=== PATIENT | female | born 1940 | race Caucasian/White ===

== ENCOUNTER 2024-11-03 16:01 | Emergency (ER) | payer OTHER ==
[~2024-11-03] VITALS: Ht 167.6 cm; Wt 66.0 kg
--- NOTE | 2024-11-03 16:09 | ED.PDOC ---
History of Present Illness HPI Comments 84-year-old female brought by paramedics from home after twisting her ankle and falling to the ground hitting her head bending her right ankle. Unable to place weight after the fall on her right lower extremity. She could not even get into the car to drive to the nearest hospital. Paramedics stated her vitals signs her mentation was pristine no other deformity. History of hypertension diabetes. She does take aspirin. Denies any other symptoms. 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 Social History Smoker: Cigarettes Alcohol: Denies ETOH Use Drugs: Denies Drug Use Constitutional: denies: chills, diaphoresis, fatigue, fever, malaise, sweats, weakness, others EENTM: denies: blurred vision, double vision, ear bleeding, ear discharge, ear drainage, ear pain, ear ringing, eye pain, eye redness, hearing loss, mouth pain, mouth swelling, nasal discharge, nose bleeding, nose congestion, nose pain, photophobia, tearing, throat pain, throat swelling, voice changes, others Respiratory: denies: cough, hemoptysis, orthopnea, SOB at rest, shortness of breath, SOB with excertion, stridor, wheezing, others Cardiovascular: denies: chest pain, dizzy spells, diaphoresis, Dyspnea on exertion, edema, irregular heart beat, left arm pain, lightheadedness, palpitations, PND, syncope, others Gastrointestinal: denies: abdomen distended, abdominal pain, blood streaked bowels, constipated, diarrhea, dysphagia, difficulty swallowing, hematemesis, melena, nausea, poor appetite, poor fluid intake, rectal bleeding, rectal pain, vomiting, others Genitourinary: denies: abnormal vagina bleeding, burning, dyspareunia, dysuria, flank pain, frequency, hematuria, incontinence, pain, , vagina discharge, urgency, others Neurological: denies: dizziness, fainting, headache, left sided numbness, left sided weakness, numbness, paresthesia, pre-existing deficit, right sided numbness, right sided weakness, seizure, speech problems, tingling, tremors, weakness, others Musculoskeletal: reports: joint pain (Right ankle); denies: back pain, gout, joint swelling, muscle pain, muscle stiffness, neck pain, others Integumetry: denies: bruises, change in color, change in hair/nails, dryness, laceration, lesions, lumps, rash, wounds, others Allergic/Immunocompromised: denies: Difficulty Healing, Frequent Infections, Hives, Itching, others Hematologic/Lymphatic: denies: anemia, blood clots, easy bleeding, easy bruisin g, swollen glands, others Endocrine: denies: excessive hunger, excessive sweating, excessive thirst, excessive urination, flushing, intolerance to cold, intolerance to heat, unexplained weight gain, unexplained weight loss, others Psychiatric: denies: anxiety, bipolar disorder, depression, hopeless, panic disorder, schizophrenia, sleepless, suicidal, others Physical Exam General Appearance: Moderate Distress HEENT: Normal ENT Inspection, Pharynx Normal, TMs Normal Neck: Full Range of Motion, Non-Tender, Normal, Normal Inspection Respiratory: Chest Non-Tender, Lungs Clear, No Accessory Muscle Use, No Respiratory Distress, Normal Breath Sounds Cardiovascular: No Edema, No JVD, No Murmur, No Gallop, Normal Peripheral Pulses, Regular Rate/Rhythm Breast Exam: Deferred Gastrointestinal: No Organomegaly, Non Tender, No Pulsatile Mass, Normal Bowel Sounds, Soft Genitalia: Deferred Pelvic: Deferred Rectal: Deferred Extremities: Decreased range of motion (Right lower extremity), No calf tenderness Musculoskeletal : Apperance: Normal Neurologic: Alert, No Motor Deficits, No Sensory Deficits Cerebellar Function: NOT DONE Reflexes: NOT DONE Skin: Normal Color Peripheral Pulses: 3+ Radial (R), 3+ Radial (L) Lymphatic: No Adenopathy Was a procedure done? Was a procedure done?: No Differential Dx Considerations may include: Head injury Musculoskeletal pain X-Ray, Labs, Meds, VS Vital Signs Date Time Temp Pulse Resp B/P (MAP) Pulse Ox O2 Delivery O2 Flow Rate FiO2 11/03/24 16:28 98.0 97 16 159/75 (103) 99 98.0 Patient alert. Complaining of right ankle pain. Mild swelling good pulses. Mentating well. No sign of distress. Denies chest pain. Denies shortness a breath. No leg swelling. She did hit her head on the fall. CT of the head was done to rule out any kind of acute process. X-ray of the right ankle does show fracture of the calcaneus. She does take aspirin. Placed a splint. Continues to smoke cigarettes. Counseled patient on effects of smoking cigarettes for 15 minutes. Was given prescription of [place]. Explained to the patient. Was told to follow up with her primary care physician. Was told to come back if there is any problem. Time of 1ST Reevaluation: 16:07 Reevaluation 1ST: Improved Patient Education/Counseling: Diagnosis, Treatment, Prognosis, Need For Follow Up Family Education/Counseling: No Family Present SEPSIS Sepsis Screen Physician Orders Head Without Contrast (11/03/24 16:21) R Ankle 2 View Xray (11/03/24 16:21) Splints (11/03/24 ) Crutches And Crutch Training (11/03/24 17:18) Vital Signs Date Time Temp Pulse Resp B/P (MAP) Pulse Ox O2 Delivery O2 Flow Rate FiO2 11/03/24 16:28 98.0 97 16 159/75 (103) 99 98.0 Departure 1 Departure Time of Disposition: 16:08 Impression: Primary Impression: Head injury Qualified Codes: S09.90XA - Unspecified injury of head, initial encounter Additional Impression: Calcaneus fracture Qualified Codes: S92.001A - Unspecified fracture of right calcaneus, initial encounter for closed fracture Disposition: 01 HOME / SELF CARE / HOMELESS Condition: Good e-Prescriptions Hydrocodone-Acetaminophen (Hydrocodone Bitartrate/AC 5-325 mg) 1 Tab Tab 1 TAB PO DAILY for 5 Days, #5 TAB Prov: TAMMY GALAVIZ MD 11/03/24 Discharged With: Self Critical Care Note Critical Care Time?: No Stability Stability form required: No Heart Score Heart Score: Heart Score Response (Comments) Value History N/A 0 EKG N/A 0 Age N/A 0 Risk Factors N/A 0 Troponin N/A 0 Total 0 TAMMY GALAVIZ MD Nov 03, 2024 16:09
[2024-11-03 16:28] VITALS: TEMP 98
--- NOTE | 2024-11-03 17:06 | DVH ---
CLINICAL INDICATION: fall TECHNIQUE: 2 radiographic views of the right ankle were obtained. Comparison: None FINDINGS/IMPRESSION: There is linear lucency over the inferior mid and anterior calcaneus and superior mid calcaneus mos t consistent with fracture. There is soft tissue edema of the dorsal hindfoot and midfoot. Recommend dedicated calcaneal radiograph for further evaluation. Bony fragment adjacent to the lateral malleolus with no obvious donor site noted. There is associate d moderate ankle soft tissue edema. Correlate with point tenderness for possible acute fracture.
[2024-11-03] MEDS ORDERED: HYDR-4902 PO (17:17)
--- NOTE | 2024-11-03 17:34 | DVH ---
Procedure: CT HEAD WITHOUT CONTRAST Study Date and Requested Time: 11/03/2024 04:32 PM History: fall Comparison: None Dose: CTDI: 51.56 mGy DLP: 826.66 mGycm Technique: Multiplanar images obtained through the brain without intravenous contrast. Findings: [id number] frontoparietal predominant brain atrophy. Mild to moderate chronic small vessel isch emic changes. Bilateral basal ganglia hypodensities which may represent lacunar infarcts of unknown c hronicity versus prominent perivascular spaces. No hemorrhages, masses, mass effect, midline shift, herniation or cytotoxic edema following a large v ascular territory. No intra-axial or extra-axial fluid collections. No evidence of hydrocephalus. The basal cisterns are patent. The pituitary gland, sella and parasellar regions are unremarkable. The cerebellar tonsils are in nor mal position. The cerebellum is unremarkable. There is bilateral lens replacement. Otherwise, orbits and globes are unremarkable. Ossification of I posterior right ethmoid air cell. Otherwise, the paranasal sinuses and mastoids are clear. There ar e no worrisome calvarial lesions. Impression: No evidence of acute intracranial abnormality.
[2024-11-03] MEDS: HYDROcodone-ACET 10/325MG TAB PO ONE (18:21)
[2024-11-03 18:33] VITALS: BP 160/72
[2024-11-03 18:34] VITALS: PULSE 91; RESP 16; O2SAT 91
--- NOTE | 2024-11-03 19:11 | DVHINCON2 ---
Consult Note Consult Consult Note Reason for Consult: Evaluation of right ankle pain and inability to bear weight following ground- level fall. --- History of Present Illness: Ms. Becki Smith is a [insert age]-year-old female who presented to the emergency department after sustaining a ground-level fall with right ankle [place] injury. She reports acute onset of pain and swelling over the right ankle and is unable to bear weight. No reported head trauma, loss of consciousness, or other associated injuries. --- Imaging: X-ray of the right ankle reveals: There is linear lucency over the inferior mid and anterior calcaneus and superior mid calcaneus most consistent with fracture. There is soft tissue edema of the dorsal hindfoot and midfoot. Recommend dedicated calcaneal radiograph for further evaluation. Bony fragment adjacent to the lateral malleolus with no obvious donor site noted. There is associated moderate ankle soft tissue edema. Correlate with point tenderness for possible acute fracture. --- Physical Exam (Orthopedic Evaluation): Inspection: Mild global swelling of the right ankle and forefoot with most swelling at the lateral malleolar area. Palpation: Marked tenderness over the lateral malleolus, Minimal calcaneus ttp Range of Motion: limited due to pain.Able to wiggle toes, gross ankle ROM intact Achilles Tendon: Intact on palpation with no defect or gap. Calf Compartments: Soft and compressible, no tenseness or signs of compartment syndrome. Neurovascular: Grossly intact distally. Patient able to wiggle all toes. Capillary refill <2 seconds. Dorsalis pedis and posterior tibial pulses are palpable. No open wounds or skin breaks. No lower back TTP , no lower extremity weakness noted on exam. --- Assessment: 1. Right ankle possible occult calcaneal fracture, nondisplaced 2. Occult distal fibular fracture, suspected nondisplaced 3. Closed ankle injury with intact Achilles and neurovascular status --- Plan: Applied CAM boot to right lower extremity.Maintain strict non-weight bearing status. Provided crutches with instruction for ambulation. Pt daughter has wheel chair to avoid WB Continue RICE protocol (rest, ice, compression, elevation). Pain control with acetaminophen or NSAIDs as needed or as prescribed by ER physician Followup with orthopedic clinic as outpatient this week for possible CT and Calcaneous and Ankle fracture Eval ER for new worsening s/s, No lower back pain or other joint pain or lower extermity numbness/tingling reported by patient. Patient and family counseled on injury, care plan, red flag symptoms, and safe mobility practices and ER return precuation for new or worsening of s/s.If swelling worsen should return to ER for change to bulky anderson cast with NWB All questions answered. Patient and family agree with above plan. FYI Pt has [place] and they plan to followup with them in next 1-3 days, happy to see her in [facility] this week Sunday for followup if needed Plan discussed with: Patient, Other (family) Visit Coding Surgery Date of Service if different f: Nov 03, 2024 Billing Provider: REINALDO RUIZ Surgery Visit Codes: [id number] - INP CONSULT <40 MIN REINALDO RUIZ Nov 03, 2024 19:11
== END 2024-11-03 18:59 | disposition home or self-care (01) ==
LOC: ER 16:01 → EDBD 16:01 → ER 18:59
DX: S92.021A Displaced fracture of anterior process of right calcaneus, initial encounter for closed fracture (principal); S09.90XA Unspecified injury of head, initial encounter; F17.210 Nicotine dependence, cigarettes, uncomplicated; I10 Essential (primary) hypertension; E11.9 Type 2 diabetes mellitus without complications; Z88.8 Allergy status to other drugs, medicaments and biological substances; Z88.2 Allergy status to sulfonamides; Z79.82 Long term (current) use of aspirin; Z79.899 Other long term (current) drug therapy; X50.1XXA Overexertion from prolonged static or awkward postures, initial encounter; Y93.89 Activity, other specified; Y92.89 Other specified places as the place of occurrence of the external cause; Y99.8 Other external cause status
CPT/HCPCS: 29515; 70450; 73600; 99407